=== PATIENT | male | born 1945 | race Caucasian/White ===

== ENCOUNTER → 2016-07-01 | Outpatient (CLI) | payer MEDICARE, OTHER | LOC: RAD 11:58 | PROVIDERS: ATTEND Family Medicine | DX: M54.5 Low back pain (principal); G89.29 Other chronic pain | CPT/HCPCS: 72100 ==

== ENCOUNTER → 2016-07-02 | Outpatient (CLI) | payer MEDICARE, OTHER | LOC: WI 09:17 | PROVIDERS: ATTEND Family Medicine | DX: M94.9 Disorder of cartilage, unspecified (principal) | CPT/HCPCS: 77080 ==

== ENCOUNTER → 2017-07-12 | Outpatient (CLI) | payer MEDICARE, OTHER ==
--- NOTE | 2017-07-12 09:21 | RADIOLOGY REPORT (SQ) ---
EXAM DESCRIPTION: MRI LT UPPER EXTREMITY WITHOUT COMPLETED DATE/TIME: 07/12/2017 8:55 am REASON FOR STUDY: LOCALIZED SWELLING, MASS AND LUMP, LEFT UPPER LIMB (R22.32) R22.32 LOCALIZED SWEL LING, MASS AND LUMP, LEFT UPPER LIMB COMPARISON: None. TECHNIQUE: Multiplanar imaging to include T1-T2 weighted images. The The left third finger was imag ed in extended position. FINDINGS: The patient has a palpable lump on the dorsum of the third finger at the base of the dorsa l distal phalanx. The lump was marked with a vitamin E capsule on the skin. Deep to the skin marker, a prominent bony osteophyte at the insertion of the extensor tendon is prese nt, best shown on sagittal image 10. The distal extensor tendon is intact. No bony marrow abnormali ties worrisome for occult fracture. No DIP joint synovial cyst. BONES: No occult fractures. No marrow replacement. LIGAMENTS AND TENDONS: No obvious tear. Viktoriya mechanism appears intact. Collateral ligaments intac t. SOFT TISSUES: No masses. No significant joint effusions. OTHER: No other significant findings. IMPRESSION: Palpable abnormality dorsal left 3rd finger at the DIP joint is a prominent bony spur al guillermo the extensor tendon attachment without marrow edema to suggest occult fracture. TECHNICAL DOCUMENTATION: JOB ID: [id number] [employer]- All Rights Reserved Reading location - IP/workstation name: [email or web address]
== END ==
LOC: RAD 07:39
PROVIDERS: ATTEND Physician Assistant
DX: R22.32 Localized swelling, mass and lump, left upper limb (principal)